=== PATIENT | female | born 1965 | race Caucasian/White ===

== ENCOUNTER 2016-11-04 13:17 | Emergency (ER) | payer MEDICAID, OTHER ==
[~2016-11-04] VITALS: Ht 157.5 cm; Wt 75.0 kg
[2016-11-04 13:21] VITALS: Ht 157.5 cm; Wt 75.0 kg
[2016-11-04] MEDS ORDERED: SOD CHLORIDE 0.9% 1,000 ML IV STA (14:41)
[2016-11-04] MEDS ORDERED: ONDANSETRON 4 MG INJ IV STA (14:41)
[2016-11-04] MEDS ORDERED: KETOROLAC 15 MG INJ IV STA (14:41)
[2016-11-04 14:50] LABS: ADD SCAN DIFF NO
[2016-11-04 14:51] LABS: BASOPHILS % 0.1 % (0.0-2.0); EOSINOPHILS # 0.1 10^3/ul (0.0-0.5); EOSINOPHILS % 0.6 % (0.0-7.0); HEMATOCRIT 37.2 % (37.0-47.0); HEMOGLOBIN 12.5 g/dl (12.0-16.0); LYMPHOCYTES # 1.4 10^3/ul (0.8-2.9); LYMPHOCYTES % 12.7 % (15.0-51.0); MEAN CORPUSCULAR HGB CONC 33.6 g/dl (32.0-37.0); MEAN CORPUSCULAR VOLUME 83.4 fl (82.0-101.0); MEAN PLATELET VOLUME 9.6 fl (7.4-10.4); MONOCYTES % 8.8 % (0.0-11.0); NEUTROPHIL # 8.8 10^3/ul (1.6-7.5); NEUTROPHILS % 77.5 % (39.0-77.0); PLATELET COUNT 286 10^3/UL (140-415); RED BLOOD COUNT 4.46 10^6/ul (4.20-5.40); RED CELL DISTRIBUTION WIDTH 13.7 % (11.5-14.5); WHITE BLOOD COUNT 11.3 10^3/ul (4.8-10.8)
[2016-11-04 14:54] LABS: ALBUMIN 4.2 g/dl (3.3-4.9)
[2016-11-04 14:56] LABS: BILIRUBIN,INDIRECT 0.2 mg/dl (0-1.1); BILIRUBIN,TOTAL 0.2 mg/dl (0.2-1.3); CREATININE 0.68 mg/dl (0.44-1.00)
[2016-11-04 14:57] LABS: ALBUMIN/GLOBULIN RATIO 1.2; TOTAL PROTEIN 7.7 g/dl (6.1-8.1)
[2016-11-04 15:13] LABS: ADD UMIC NO; URINE BILIRUBIN (Dip) NEGATIVE (NEGATIVE); URINE BLOOD (Dip) NEGATIVE (NEGATIVE); URINE COLOR LT. YELLOW (YELLOW); URINE GLUCOSE (Dip) NEGATIVE (NEGATIVE); URINE KETONES (Dip) TRACE (NEGATIVE); URINE LEUKOCYTE ESTERASE (Dip) NEGATIVE (NEGATIVE); URINE NITRITE (Dip) NEGATIVE (NEGATIVE); URINE TOTAL PROTEIN (Dip) NEGATIVE (NEGATIVE); URINE UROBILINOGEN (Dip) 0.2 E.U./dL (0.1-1.0)
--- NOTE | 2016-11-04 15:24 | RADRPT ---
PROCEDURE: CT brain without contrast CLINICAL INDICATION: Migraine headache, confusion TECHNIQUE: CT of the brain without contrast was performed on a multidetector CT scanner, with multi planar reformats. One or more of the following dose reduction techniques were used: Automated expos ure control, adjustment in mA and / or kV according to patient size, use of iterative reconstructive technique. CTDIvol = 45 mGy; DLP = 630 mGy-cm. COMPARISON: None available FINDINGS: No acute intracranial hemorrhage is identified. No extra-axial fluid collection is seen. There is no mass effect. No midline shift is identified. Ventricles and sulci are within normal limits for size and configuration. The density of the brain is within normal limits. Phelan-white differentiation is preserved. Osseous structures are unremarkable. Mastoid air cells and imaged paranasal sinuses grossly clear. IMPRESSION: Unremarkable noncontrast CT of the brain. RPTAT: VV .Farzad Sawyer MD, MD Date Time Electronically viewed and signed by .Farzad Sawyer MD, on 11/04/2016 15:24 .O/
[2016-11-04] MEDS ORDERED: TRAM50TA2 PO (15:37)
--- NOTE | 2016-11-04 15:39 | ERA ---
ER Documentation Chief Complaint Date/Time DATE: 11/04/16 TIME: 15:38 Chief Complaint SEVERE HEADACHE,NAUSEA STARTED 1 HOUR AGO.HX OF MIGRAINE HPI 51-year-old woman with a history of migraine presents with headache similar previous episodes, symptoms began earlier today although daughter who was at the bedside states she has been having these headaches for about 3 days. She has been using ibuprofen at home without relief. She has had some nausea no vomiting, no seizures, no loss of consciousness, no chest pain or shortness of breath. ROS All systems reviewed and are negative except as per history of present illness. Medications Home Meds Active Scripts Tramadol HCl (Tramadol HCl) 50 Mg Tablet, 50 MG PO Q6, #15 TAB Prov:FRANSISCO URBINA MD 11/04/16 PMhx/Soc Migraine headaches Medical and Surgical Hx: pt denies Medical Hx, pt denies Surgical Hx History of Surgery: No Anesthesia Reaction: No Hx Neurological Disorder: No Hx Respiratory Disorders: No Hx Cardiac Disorders: No Hx Psychiatric Problems: No Hx Miscellaneous Medical Probl: No Hx Alcohol Use: No Hx Substance Use: No Hx Tobacco Use: No Smoking Status: Never smoker FmHx Family History: No diabetes Physical Exam Vitals Vital Signs Date Time Temp Pulse Resp B/P Pulse Ox O2 Delivery O2 Flow Rate FiO2 11/04/16 16:01 72 17 128/82 100 Room Air 11/04/16 13:21 98.6 89 18 162/90 98 Physical Exam GENERAL: Well-developed, well-nourished, mild discomfort HEENT: Moist mucous membranes, pink conjunctiva, no cervical spine tenderness or step-off deformities, no goiter, no jaundice or icterus, extraocular movements intact without pain. No submandibular induration, and no pharyngeal erythema NEURO: Alert and oriented 3, cranial nerves II through XII intact bilaterally, pupils equal round reactive to light, no focal deficits or facial asymmetry, sensation intact distally Strength 5/5 in upper and lower extremities bilaterally CARDIAC: Regular rate and rhythm, no murmurs rubs or gallops LUNGS: Clear bilaterally no wheezing crackles or stridor ABDOMEN: Soft nontender, no guarding, no rigidity, no rebound, no psoas sign no obturator sign. Normoactive bowel sounds SKIN: Warm and dry to touch, no abrasions, contusions, or hematomas, no lacerations, no ecchymosis, no target lesions, and without ulcers EXTREMITIES: No clubbing cyanosis or edema, calves are bilaterally symmetrical, no Homans sign, no popliteal cord sign. Distal pulses equal and bilateral PSYCH: Normal affect without agitation or irritability Result Diagram: 11/04/16 1430 11/04/16 1430 Results 24 hrs Laboratory Tests Test 11/04/16 14:30 11/04/16 14:54 White Blood Count 11.310^3/ul Red Blood Count 4.4610^6/ul Hemoglobin 12.5g/dl Hematocrit 37.2% Mean Corpuscular Volume 83.4fl Mean Corpuscular Hemoglobin 28.0pg Mean Corpuscular Hemoglobin Concent 33.6g/dl Red Cell Distribution Width 13.7% Platelet Count 61364^3/UL Mean Platelet Volume 9.6fl Neutrophils % 77.5% Lymphocytes % 12.7% Monocytes % 8.8% Eosinophils % 0.6% Basophils % 0.1% Nucleated Red Blood Cells % 0.0/100WBC Neutrophils # 8.810^3/ul Lymphocytes # 1.410^3/ul Monocytes # 1.010^3/ul Eosinophils # 0.110^3/ul Basophils # 0.010^3/ul Nucleated Red Blood Cells # 0.010^3/ul Sodium Level 136mmol/L Potassium Level 4.0mmol/L Chloride Level 101mmol/L Carbon Dioxide Level 26mmol/L Anion Gap 13 Blood Urea Nitrogen 12mg/dl Creatinine 0.68mg/dl Glucose Level 129mg/dl Calcium Level 9.0mg/dl Total Bilirubin 0.2mg/dl Direct Bilirubin 0.00mg/dl Indirect Bilirubin 0.2mg/dl Aspartate Amino Transf (AST/SGOT) 27IU/L Alanine Aminotransferase (ALT/SGPT) 29IU/L Alkaline Phosphatase 75IU/L Total Protein 7.7g/dl Albumin 4.2g/dl Globulin 3.50g/dl Albumin/Globulin Ratio 1.20 Lipase 238U/L Urine Color LT. YELLOW Urine Clarity CLEAR Urine pH 6.0 Urine Specific [place] 1.015 Urine Ketones TRACE Urine Nitrite NEGATIVE Urine Bilirubin NEGATIVE Urine Urobilinogen 0.2 E.U./dL Urine Leukocyte Esterase NEGATIVE Urine Hemoglobin NEGATIVE Urine Glucose NEGATIVE% Urine Total Protein NEGATIVE Current Medications Medications (Trade) Dose Ordered Sig/Alen Route PRN Reason Start Time Stop Time Status Last Admin Dose Admin Sodium Chloride (NS) 1,000 ml @ 1,000 mls/hr Q1H STAT IV 11/04/16 14:41 11/04/16 15:40 DC 11/04/16 14:58 Ondansetron HCl (Zofran Inj) 4 mg ONCE STAT IV 11/04/16 14:41 11/04/16 14:42 DC 11/04/16 14:58 Ketorolac Tromethamine (Toradol) 15 mg ONCE STAT IV 11/04/16 14:41 11/04/16 14:42 DC 11/04/16 14:58 Procedures/MDM IV line was established patient was placed on front desk monitor rhythm strip revealed a sinus rhythm at about 80 bpm with upright P and T waves. Patient was afebrile. I administered 1 L normal saline intravenously, Toradol 15 mg IV, and Zofran 4 mg IV with good response. CT scan of the brain was performed is negative for acute bleed mass or shift. CBC and electrolytes were normal, urine analysis was negative for infection. Liver function tests were normal Patient's headache improved and vital signs remained normal. Differential diagnoses considered, included but not limited to acute coronary syndrome, pulmonary embolism, aortic dissection, abdominal aortic aneurysm, sepsis, stroke, meningitis, encephalitis, pneumonia, appendicitis, cholecystitis , bowel obstruction, pyelonephritis, nephrolithiasis, cystitis, as well as metabolic, hematologic, and electrolyte abnormalities. As well as abscess, cellulitis, fractures, and dislocations. Patient feels much better at this time, and vital signs are normal, symptoms have improved. I did give strict instructions to return to the ED if symptoms continue or worsen, patient will otherwise follow-up with primary care physician. Patient understood instructions and agreed to plan. Departure Diagnosis: Primary Impression: Migraine Qualified Code: G43.009 - Migraine without aura and without status migrainosus , not intractable Additional Impression: Dizziness Condition: Good Patient Instructions: Dehydration (6Y-Adult), Headache, Migraine (Classical) FRANSISCO URBINA MD Nov 04, 2016 15:39
[2016-11-04 16:01] VITALS: BP 128/82; PULSE 72; RESP 17
== END 2016-11-04 16:03 | disposition home or self-care (01) ==
LOC: FTE 13:17 → E/R 16:03
DX: G43.009 Migraine without aura, not intractable, without status migrainosus (principal); R42 Dizziness and giddiness; R11.0 Nausea
CPT/HCPCS: 70450; 80053; 81003; 83690; 85025; J1885; J2405; J7030; 36415; 96374; 96375